=== PATIENT | male | born 1945 | race Caucasian/White ===

== ENCOUNTER 2020-12-23 11:23 | Emergency (ER) | payer OTHER ==
[2020-12-23 11:43] VITALS: BMI 25.6
[2020-12-23] MEDS ORDERED: SODIUM CHLORIDE 0.9% 500 ML INFUS.BAG IV ONE ×3 (11:47→13:23)
[2020-12-23 12:39] LABS: INR 1.1 (0.83-1.09); PROTHROMBIN TIME (PATIENT) 12.9 SEC (9.7-13.0)
[2020-12-23 12:54] LABS: CHLORIDE 108 mmol/L (98-107); SODIUM 143 mmol/L (136-145)
[2020-12-23 12:56] LABS: ANION GAP 7 MMOL/L (8-16); BLOOD UREA NITROGEN 11.7 mg/dL (7-18); CALCIUM 8.9 mg/dL (8.5-10.1); CO2 27 mmol/L (21-32)
[2020-12-23 12:57] LABS: ALBUMIN 3.6 g/dl (3.4-5.0); GLUCOSE,RANDOM 86 mg/dL (74-106)
[2020-12-23 12:59] LABS: CREATININE 0.9 mg/dL (0.55-1.3)
[2020-12-23 13:00] LABS: SGOT/AST 14 U/L (15-37); SGPT/ALT 22 U/L (13-61)
[2020-12-23 13:01] LABS: BILIRUBIN,TOTAL 0.6 mg/dL (0.2-1); TOT PROT 6.8 g/dl (6.4-8.2)
[2020-12-23 13:02] LABS: ALK PHOS 59 U/L (45-117)
[2020-12-23 13:10] LABS: BASO % 0.4 % (0-2.0); EOS % 0.8 % (0-4.5); HEMATOCRIT 39.4 % (35.4-49); HEMOGLOBIN 13.5 GM/dL (11.7-16.9); LYMPH % 18.9 % (8-40); MCH 32.9 pg (25.7-33.7); MCHC 34.4 g/dl (32.0-35.9); MEAN CELL VOLUME 95.6 fl (80-96); MEAN PLT VOLUME 8.6 fl (7.5-11.1); MONO % 8.2 % (3.8-10.2); NEUT % 71.7 % (42.8-82.8); PLATELET COUNT 131 10^3/uL (134-434); RBC 4.12 M/mm3 (4.00-5.60); WHITE BLOOD COUNT 3.6 K/mm3 (4.0-10.0)
[2020-12-23 18:11] VITALS: BP 118/78; PULSE 101; TEMP 98.6
== END 2020-12-23 18:13 | disposition left against medical advice (07) ==
LOC: JER 11:23
DX: R00.0 Tachycardia, unspecified (principal)
CPT/HCPCS: 36415; 71045-TC-FY; 80053; 84443; 84484; 85025; 85610; 85730; 86850; 86900; 86901; 93005; 93010; 99284-25; C9803; U0003; U0005